=== PATIENT | female | born 1945 | race Caucasian/White ===

== ENCOUNTER 2023-07-03 09:37 | Emergency (ER) | payer MEDICARE, OTHER ==
[~2023-07-03] VITALS: Ht 154.9 cm; Wt 54.0 kg
[2023-07-03 09:58] VITALS: O2SAT 98
[2023-07-03] MEDS ORDERED: METHOCARBAMOL 500MG TABLET PO ONE (10:30)
[2023-07-03 12:14] VITALS: BP 121/87; PULSE 90; RESP 20; TEMP 98.1
== END 2023-07-03 12:15 | disposition home or self-care (01) ==
LOC: ER 10:26
DX: S09.90XA Unspecified injury of head, initial encounter (principal); S13.4XXA Sprain of ligaments of cervical spine, initial encounter; Z88.6 Allergy status to analgesic agent; Z88.5 Allergy status to narcotic agent; W18.30XA Fall on same level, unspecified, initial encounter; Y93.89 Activity, other specified; Y92.89 Other specified places as the place of occurrence of the external cause; Y99.8 Other external cause status
CPT/HCPCS: 70486; 73130; 99284